=== PATIENT | female | born 1985 | race Two or more races ===

== ENCOUNTER 2022-10-16 11:12 | Emergency (ER) | payer OTHER ==
--- NOTE | 2022-10-16 11:46 | ED Physician Documentation ---
History of Present Illness - Stated complaint Stated Complaint: SOA,RT SIDE PX - Chief complaint Chief Complaint: Abd Pain - History obtained from History obtained from: Patient - History of Present Illness Pain level max: 10 Pain level now: 10 - Additonal information Additional information: Patient is a 36-year-old female who presents to the emergency department with worsening right flank pain x2 days. Has never had similar symptoms previously. Radiates from the right flank to the right lower abdomen. Increasing today. Has not taken anything for pain today. She states that she has on "a lot of medications at home". She states that she drove herself here and does not know what medication she takes. Denies any allergies to medication. No history of kidney stones. No fevers, chills, vomiting, diarrhea, constipation or urinary symptoms. Nothing makes it better or worse. Review of Systems Constitutional: denies: Fever, Chills GI: denies: Vomiting, Diarrhea, Hematemesis, Bloody / black stool : denies: Dysuria, Frequency, Hesitancy, Now EGA Skin: denies: Rash Musculoskeletal: denies: Neck pain, Back pain Neurologic: denies: Headache PD PAST MEDICAL HISTORY - Past Medical History Past Medical History: Yes Psych: Depression - Present Medications Home Medications: Ambulatory Orders Medication Instructions Recorded Confirmed Cefdinir 300 mg PO BID #20 cap 10/16/22 Cholecalciferol (Vitamin D3) 25 mcg PO DAILY 10/16/22 10/16/22 [Vitamin D3] DULoxetine [Cymbalta] 60 mg PO DAILY 10/16/22 10/16/22 Diclofenac Sodium 1% Gel [Voltaren 1 applic TOP QID PRN 10/16/22 10/16/22 Gel] Ferrous Sulfate [Feosol] 325 mg PO DAILY 10/16/22 10/16/22 Ibuprofen [Motrin] 1 tablet PO DAILY PM 10/16/22 10/16/22 Levonorgestrel [Kyleena] 1 each IY ONCE 10/16/22 10/16/22 Multivit with Iron,Minerals 1 each PO DAILY 10/16/22 10/16/22 [Multivitamins with Iron] Ondansetron Odt [Zofran] 4 mg TL Q6H PRN #10 tablet 10/16/22 Oxycodone HCl/Acetaminophen 1 - 2 each PO Q6H PRN #14 tablet 10/16/22 [Percocet 5-325 mg Tablet] MDD 6 tabs Prazosin HCl [Minipress] 10 mg PO DAILY 10/16/22 10/16/22 Semaglutide [Wegovy] 1.7 mg SQ Q7D 10/16/22 10/16/22 Sertraline HCl 200 mg PO DAILY 10/16/22 10/16/22 - Allergies Allergies/Adverse Reactions: Allergies Allergy/AdvReac Type Severity Reaction Status Date / Time No Known Drug Allergies Allergy Verified 10/16/22 11:23 - Living Situation Living Situation: reports: With family Living Arrangement: reports: At home - Social History Does the pt have substance abuse?: No - Family History Family history: reports: Non contributory PD ED PE NORMAL - Vitals Vital signs reviewed: Yes - General General: Alert and oriented X 3, Other (Appears in pain) - HEENT HEENT: PERRL, Moist mucous membranes - Neck Neck: Supple, no meningeal sign - Cardiac Cardiac: RRR, Strong equal pulses - Respiratory Respiratory: No respiratory distress, Clear bilaterally - Abdomen Abdomen: Soft, Non tender, Non distended - Back Back: No CVA TTP, No spinal TTP - Derm Derm: Warm and dry, No rash - Extremities Extremities: No edema - Neuro Neuro: Alert and oriented X 3 - Psych Psych: Normal mood, Normal affect Results - Vitals Vitals: Vital Signs - 24 hr 10/16/22 10/16/22 10/16/22 11:21 12:17 13:43 Temperature 37 C 37.6 C 37.1 C Heart Rate 133 H 132 H 112 H Respiratory 26 H 20 Rate Blood Pressure 128/68 113/63 109/71 O2 Saturation 100 100 98 Oxygen O2 Source Room air - Labs Labs: Laboratory Tests 10/16/22 10/16/22 10/16/22 11:40 11:40 12:40 WBC 10.7 RBC 4.26 Hgb 11.6 L Hct 37.6 MCV 88.3 MCH 27.2 MCHC 30.9 L RDW 14.1 Plt Count 182 MPV 10.4 Neut # (Auto) 10.1 H Lymph # (Auto) 0.4 L Grady # (Auto) 0.1 Eos # (Auto) 0.0 Baso # (Auto) 0.0 Absolute Nucleated RBC 0.00 Nucleated RBC % 0.0 Sodium 137 Potassium 3.4 L Chloride 106 Carbon Dioxide 21 Anion Gap 10.0 BUN 11 Creatinine 0.6 Estimated GFR (MDRD) 114 Glucose 111 H Calcium 9.3 Total Bilirubin 0.7 AST 20 ALT 17 Alkaline Phosphatase 67 Total Protein 7.1 Albumin 4.5 Globulin 2.6 Albumin/Globulin Ratio 1.7 Lipase 9 L Urine Color YELLOW Urine Clarity CLOUDY Urine pH 6.0 Ur Specific Alpha 1.025 Urine Protein 30 H Urine Glucose (UA) NEGATIVE Urine Ketones >=80 H Urine Occult Blood MODERATE H Urine Nitrite POSITIVE H Urine Bilirubin NEGATIVE Urine Urobilinogen 0.2 (NORMAL) Ur Leukocyte Esterase MODERATE H Urine RBC 6-10 H Urine WBC >25 H Ur Squamous Epith Cells MANY Squamous H Urine Bacteria Moderate H Urine Casts 3-5 Hyaline Casts Urine Mucus Marked Strands Ur Microscopic Review INDICATED Urine Culture Comments NOT INDICATED Urine HCG, Qual NEGATIVE - Rads (name of study) CT abdomen pelvis Relevant Findings:: Final report received, See rad report PD Medical Decision Making - ED course Complexity details: reviewed results, re-evaluated patient, considered differential, d/w patient ED course: Patient is a 36-year-old female who presents to the emergency department right flank pain. Initial concern for potential ureteral stone, given Toradol and IV lidocaine, pain did improve. Her CT scan is concerning for pyelonephritis, ur inalysis is consistent with this. She is not febrile here. Given IV Rocephin. Will place on oral antibiotics for home. No indication for admission at this time. Patient counseled regarding signs and symptoms for which I believe and urgent re-evaluation would be necessary. Patient with good understanding of and agreement to plan and is comfortable going home at this time This document was made in part using voice recognition software. While efforts are made to proofread this document, sound alike and grammatical errors may occur. Departure - Departure Disposition: 01 Home, Self Care Clinical Impression: Pyelonephritis Condition: Good Instructions: ED Kidney Infec Female Follow-Up: your,doctor in 3 days for recheck [Other] Prescriptions: Cefdinir 300 mg PO BID #20 cap Oxycodone HCl/Acetaminophen [Percocet 5-325 mg Tablet] 1 - 2 each PO Q6H PRN #14 tablet MDD 6 tabs PRN Reason: pain Ondansetron Odt [Zofran] 4 mg TL Q6H PRN #10 tablet PRN Reason: Nausea / Vomiting Comments: Take all antibiotics until gone. Please follow-up with your doctor for further care. Please return if you worsen. You appear to have a kidney infection today. Your prescriptions were sent to [facility] in [place]. I am prescribing a short course of narcotic pain medication for you. These are potentially dangerous and addictive medications that should be used carefully. These medications may constipate you. Take an [id number] stool softener (docusate) twice daily with plenty of water while taking these medications. If you go 24 hours without a bowel movement, take [id number] miralax, per package instructions. Do not drink or drive while taking these medications. If you received narcotic or sedating medications while in the emergency department, do not drive for 24 hours. Store this medication in a safe, secure place and out of reach of children. It is a violation of federal law to give or sell this medication to another person or to use in a manner other than prescribed. The ED will not refill narcotic prescriptions, including prescriptions lost or stolen. To dispose of unwanted medications: 1. [facility] [address] in [place] has a medication drop box. They accept prescription medications (in pill form) Monday through Monday 9:00 a.m. to 5:00 p.m. 2. The [facility] [employer] accepts prescription medications (in pill form only) for disposal year round. Call for more information. 3. Contact the [facility] for the next [facility] sponsored prescription dr gato monge event. , [phone], or [phone]; Forms: PCP List Discharge Date/Time: 10/16/22 14:31
[2022-10-16 11:49] LABS: BASOPHILS % (AUTO) 0.3 %; EOSINOPHILS % (AUTO) 0.3 %; HCT - HEMATOCRIT 37.6 % (37.0-47.0); HGB - HEMOGLOBIN 11.6 g/dL (12.0-16.0); LYMPHOCYTES # (AUTO) 0.4 10^3/uL (1.5-3.5); LYMPHOCYTES % (AUTO) 3.4 %; MEAN CORPUSCULAR HEMOGLOBIN 27.2 pg (27.0-31.0); MEAN CORPUSCULAR HGB CONC 30.9 g/dL (32.0-36.0); MEAN CORPUSCULAR VOLUME 88.3 fL (81.0-99.0); MEAN PLATELET VOLUME 10.4 fL (7.9-10.8); MONOCYTES # (AUTO) 0.1 10^3/uL (0.0-1.0); MONOCYTES % (AUTO) 1.2 %; NEUTROPHILS # (AUTO) 10.1 10^3/uL (1.5-6.6); NEUTROPHILS % (AUTO) 94.5 %; PLT - PLATELET COUNT 182 10^3/uL (130-450); RED BLOOD COUNT 4.26 10^6/uL (4.20-5.40); RED CELL DISTRIBUTION WIDTH 14.1 % (12.0-15.0); WHITE BLOOD COUNT 10.7 x10^3/uL (4.8-10.8)
[2022-10-16] MEDS: KETOROLAC 30 MG/ML VIAL IVP STA (11:52)
[2022-10-16 12:06] LABS: ALBUMIN 4.5 g/dL (3.2-5.5); ALBUMIN/GLOBULIN RATIO 1.7 (1.0-2.2); BILIRUBIN,TOTAL 0.7 mg/dL (0.2-1.0); CALCIUM 9.3 mg/dL (8.5-10.3); CREATININE 0.6 mg/dL (0.6-1.3); POTASSIUM 3.4 mmol/L (3.5-4.5); TOTAL PROTEIN 7.1 g/dL (6.4-8.9)
[2022-10-16] MEDS: LIDOCAINE-MPF 2% 6 ML in SODIUM CHLORIDE 0.9% 50 ML IV STA (12:16)
[2022-10-16 12:50] LABS: BILIRUBIN,URINE NEGATIVE (NEGATIVE); GLUCOSE, URINE (UA) NEGATIVE (NEGATIVE); KETONES,URINE (UA) >=80 mg/dL (NEGATIVE); LEUKOCYTE ESTERASE, URINE MODERATE (NEGATIVE); NITRITE,URINE POSITIVE (NEGATIVE); OCCULT BLOOD,URINE MODERATE (NEGATIVE); PROTEIN,URINE 30 mg/dL (NEGATIVE); UROBILINOGEN,URINE 0.2 (NORMAL) E.U./dL (NORMAL)
[2022-10-16 12:58] LABS: CLARITY,URINE CLOUDY (CLEAR); HCG UR QUAL NEGATIVE; SQUAMOUS EPITHELIAL CELL,UR MANY Squamous (<= Few); WBC,URINE >25 /HPF (0-5)
[2022-10-16 12:59] LABS: BACTERIA,URINE Moderate /HPF (None Seen); CASTS, URINE 3-5 Hyaline Casts /LPF; MUCUS,URINE Marked Strands
[2022-10-16] MEDS: SODIUM CHLORIDE 0.9% 1,000 ML IV STA (13:15)
--- NOTE | 2022-10-16 13:37 | CT Report ---
PROCEDURE: CT abdomen pelvis without contrast INDICATIONS: R flank pain TECHNIQUE: Helical axial CT of the abdomen and pelvis was obtained without intravenous contrast and reformatted in multiple planes. Radiation dose reduction was achieved utilizing automated exposure co ntrol or adjustment of mA and/or kV according to patient size. COMPARISON: None. FINDINGS: Lower thorax: The lung bases are clear. Heart size normal. No hiatal hernia. Liver: Normal in size and attenuation. No contour deformity present. Biliary system: No calcified cholelithiasis or pericholecystic inflammation. No evidence of bile du ct dilatation. Pancreas: Unremarkable without mass or inflammation evident. Spleen: Normal in size and density. Adrenals: Normal morphology and density. Reproductive system: Unremarkable as visualized. Intrauterine device in good position. 3.7 cm left a dnexal cyst Urinary system: Mild right hydronephrosis and hydroureter with periureteral edema noted without calci fied obstructing lesion. Left kidney unremarkable. Bladder unremarkable. Gastrointestinal system: The bowel appears unremarkable with no evidence of bowel obstruction or inf lammation. The stomach appears unremarkable. Moderate fecal debris throughout the colon without obstr uction. Appendix: No findings to suggest acute appendicitis. Peritoneal spaces: No mesenteric or retroperitoneal adenopathy. No free air. No free fluid. Vasculature: The IVC, aorta and iliac vasculature are unremarkable. Abdominal Wall: Abdominal wall is intact without evidence of ventral or inguinal hernias. Musculoskeletal: Normal bone mineralization. No acute fractures. IMPRESSION: Right renal hydronephrosis and hydroureter with largely periureteral edema, but without calcified obs tructing lesion. Differential possibilities include recently passed stone, radiolucent stone and infe ction such as urethritis/pyelonephritis Incidental 3.7 cm left adnexal cyst Reviewed by: Daquan Whitley MD on 10/16/2022 12:36 PM AKDT Approved by: Daquan Whitley MD on 10/16/2022 12:36 PM AKDT Station ID: [id number]
[2022-10-16 13:50] VITALS: BP 109/71; O2SAT 98
[2022-10-16] MEDS: cefTRIAXone 1 GM VIAL IVP STA (13:54)
== END 2022-10-16 14:31 | disposition home or self-care (01) ==
LOC: ED 11:12
DX: N12 Tubulo-interstitial nephritis, not specified as acute or chronic (principal); Z79.899 Other long term (current) drug therapy
CPT/HCPCS: 36415; 80053; 81001; 81003; 81025; 83690; 85025; 87086; 96365; 96375; 99283

== ENCOUNTER 2022-12-06 10:01 | Outpatient (CLI) | payer OTHER ==
--- NOTE | 2022-12-06 15:53 | Ultrasound Report ---
LIMITED ULTRASOUND OF LEFT BREAST: 12/06/2022 CLINICAL: Patient returns today to evaluate a focal asymmetry in the left breast. Comparison is made to exams dated: 12/06/2022 mammogram - [facility], 03/23/2022 [facility], 03/23/2022 ultrasound, and 03/23/2022 mammogram - [facility]. Ultrasound of the left breast 8 o'clock region was performed. Harkins scale images of the real-time exa mination were reviewed. No ultrasound finding which corresponds with the mammographic abnormality is seen. IMPRESSION: PROBABLY BENIGN There is no abnormality seen in the left breast to correspond with the mammography finding at 8 o'vidhya ck. A follow-up mammogram in 6 months is recommended to demonstrate stability of the mammographic fi nding. This exam was interpreted at Station ID: [id number]. Electronically Signed By: Mohan Sinclair M.D. acr/:12/06/2022 12:06:18 Ultrasound BI-RADS: 3 Probably benign BI-RADS CATEGORY: (3) - 3 Mammo and US [id number] 6 month follow-up LATERALITY: (L)
--- NOTE | 2022-12-06 15:53 | Mammography Report ---
BILATERAL DIGITAL DIAGNOSTIC MAMMOGRAM 3D/2D: 12/06/2022 CLINICAL: Patient returns for a 6 month follow up of bilateral breasts. Comparison is made to exam dated: 03/23/2022 mammogram - [facility]. Both breasts are extremely dense, which lowers the sensitivity of mammography (category d />75% gland ular tissue). There is a 0.7 cm x 0.5 cm oval asymmetry in the left breast at 8 o'clock posterior depth 8 cm from t he nipple. This is not significantly changed. No other significant masses, calcifications, or other findings are seen in either breast. IMPRESSION: INCOMPLETE: NEEDS ADDITIONAL IMAGING EVALUATION The 0.7 cm x 0.5 cm oval asymmetry in the left breast is indeterminate. An ultrasound is recommended . US will be performed and dictated separately. Based on the Tyrer Cuzick model (a risk assessment model) the patients lifetime risk is 12.7% and he r 10 year risk is 1.1%. According to the ACR, ACS, and NCCN guidelines, an annual breast MRI exam rudy ng with mammogram is recommended if the patients lifetime risk is 20% or greater. This exam was interpreted at Station ID: [id number]. NOTE: For mammograms, a report in lay terms will be sent to the patient. Approximately 15% of breast malignancies will not be visualized mammographically. In the management of a palpable breast mass, a negative mammogram must not discourage biopsy of a clinically suspicious lesion. Electronically Signed By: Mohan Sinclair M.D. acr/:12/06/2022 11:01:17 ACR BI-RADS Category 0: Incomplete 3340F PARENCHYMAL PATTERN: (VD) - The breast(s) demonstrate(s) extremely dense parenchyma, limiting the sen sitivity of mammography. BI-RADS CATEGORY: (0) - 0 Ultrasound [id number] Immediate follow-up LATERALITY: (L)
== END 2022-12-06 10:02 | disposition home or self-care (01) ==
LOC: DI 10:01
PROVIDERS: ATTEND Registered Nurse
DX: R92.8 Other abnormal and inconclusive findings on diagnostic imaging of breast (principal); R92.30 Dense breasts, unspecified

== ENCOUNTER 2023-06-08 09:32 | Outpatient (CLI) | payer OTHER ==
--- NOTE | 2023-06-09 09:25 | Mammography Report ---
UNILATERAL LEFT DIGITAL DIAGNOSTIC MAMMOGRAM 3D/2D: 06/08/2023 CLINICAL: Patient returns for a 6 month follow up of the left breast. Comparison is made to exams dated: 12/06/2022 mammogram - [facility] and 03/23/2022 mammogram - [facility]. The left breast is extremely dense, which lowers the sensitivity of mammography (category d />75% gla ndular tissue). There is a stable 0.7 cm x 0.5 cm oval focal asymmetry in the left breast at 8 o'clock posterior dept h. This is seen in additional views. This was not seen on the prior ultrasound. No other significant masses or calcifications are seen in the breast. IMPRESSION: PROBABLY BENIGN The stable 0.7 cm x 0.5 cm oval focal asymmetry in the left breast is probably benign. A follow-up mammogram in 6 months is recommended to demonstrate stability. Based on the Tyrer Cuzick model (a risk assessment model) the patient's lifetime risk is 12.7% and he r 10 year risk is 1.1%. According to the ACR, ACS, and NCCN guidelines, an annual breast MRI exam rudy ng with mammogram is recommended if the patient's lifetime risk is 20% or greater. This exam was interpreted at Station ID: [id number]. NOTE: For mammograms, a report in lay terms will be sent to the patient. Approximately 15% of breast malignancies will not be visualized mammographically. In the management of a palpable breast mass, a negative mammogram must not discourage biopsy of a clinically suspicious lesion. Electronically Signed By: Oh Koehler M.D. lc/:06/08/2023 10:27:33 ACR BI-RADS Category 3: Probably benign 3343F PARENCHYMAL PATTERN: (VD) - The breast(s) demonstrate(s) extremely dense parenchyma, limiting the sen sitivity of mammography. BI-RADS CATEGORY: (3) - 3 Mammogram [id number] 6 month follow-up LATERALITY: (B)
== END 2023-06-08 09:33 | disposition home or self-care (01) ==
LOC: DI 09:32
PROVIDERS: ATTEND Registered Nurse
DX: R92.8 Other abnormal and inconclusive findings on diagnostic imaging of breast (principal)